=== PATIENT | male | born 1955 ===

== ENCOUNTER 2023-12-24 07:07 | Day surgery (SDC) | payer OTHER ==
[~2023-12-24 07:07] MED LIST: ADULT LOW DOSE81 M1; BIOTE; CALCIO; CRESTOR5 MG; FENOFIBRATE 145MG; FOSAMAX; MULTIVITAMINA; OMEGA 3
[2023-12-24] MEDS ORDERED: ENOXAPARIN SODIUM 40 MG/0.4 ML SYRINGE SUBCUTANEO ONE ×2 (09:52→13:15)
[2023-12-24] MEDS ORDERED: ERTAPENEM SODIUM 1,000 MG VIAL ONE (09:52)
[2023-12-24] MEDS ORDERED: BUPIVACAINE HCL/PF 0.5% 30ML ML ONE (12:09)
[2023-12-24] MEDS ORDERED: BUPIVACAINE HCL 30 ML VIAL IJ ONE (13:15)
[2023-12-24] MEDS ORDERED: ERTAPENEM SODIUM 1,000 MG VIAL IV ONE (13:15)
[2023-12-24] MEDS ORDERED: PERCOCET 5-3251 EACH PO (14:23)
[2023-12-24] MEDS ORDERED: NEURONTIN300 MG PO (14:23)
[2023-12-24] MEDS ORDERED: CELEBREX200MG PO (14:24)
[2023-12-24] MEDS ORDERED: COLACE100 MG PO (14:24)
== END 2023-12-24 17:35 | disposition home or self-care (01) ==
LOC: CIR.AMB 07:07
PROVIDERS: ATTEND Surgery
DX: K40.90 Unilateral inguinal hernia, without obstruction or gangrene, not specified as recurrent (principal); Z91.013 Allergy to seafood; Z88.0 Allergy status to penicillin
CPT/HCPCS: 49650; C1781